=== PATIENT | female | born 1995 | race Caucasian/White ===

== ENCOUNTER 2019-10-09 21:52 | Emergency (ER) | payer OTHER, BC ==
[~2019-10-09] VITALS: Ht 170.2 cm; Wt 66.0 kg
[2019-10-09] MEDS ORDERED: DIPH,PERTUSS(ACELL),TET VAC/PF 0.5 ML IM-VACC ONE ×2 (22:30→22:46)
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
[2019-10-09] MEDS ORDERED: ACETAMINOPHEN 325 MG TABLET ONE (22:45)
[2019-10-09] MEDS ORDERED: ACETAMINOPHEN 325 MG TABLET PO ONE (23:00)
--- NOTE | 2019-10-09 23:50 | NUR ---
PT. REPORTS RELIEF FROM MEDS. WOUNDS REMAIN CLEAN AND DRESSED. SPLINT IN PLACE WITH CMS CHECKS INTACT. PT. WAS GIVEN DISCHARGE INSTRUCTIONS WITH UNDERSTANDING VERBALIZED ALONG WITH WILLINGNESS TO COMPLY. PT. WAS AMBULATORY WITH A STEADY GAIT TO THE DISCHARGE DESK.
[2019-10-09 23:51] VITALS: BP 128/65
== END 2019-10-09 23:53 | disposition home or self-care (01) ==
LOC: ED 23:00
DX: S00.83XA Contusion of other part of head, initial encounter (principal); M25.531 Pain in right wrist; M25.571 Pain in right ankle and joints of right foot; V89.9XXA Person injured in unspecified vehicle accident, initial encounter; Y93.89 Activity, other specified; Y92.488 Other paved roadways as the place of occurrence of the external cause; Y99.8 Other external cause status
CPT/HCPCS: 29125; 70486; 71045; 90471; 90715; 99284